=== PATIENT | male | born 2000 | race Caucasian/White ===

== ENCOUNTER 2020-11-21 01:42 | Emergency (ER) | payer OTHER ==
[~2020-11-21] VITALS: Ht 188 cm; Wt 104.0 kg
--- NOTE | 2020-11-21 02:39 | NUR ---
PT PRESENTS TO ED WITH LACERATION TO BACK OF LEFT SIDE OF HEAD. PT FELL WALKING UP STAIRS TO APARMENT AND HIT HIS HEAD. PT RESTING ON GURNEY.
[2020-11-21] MEDS ORDERED: LIDOCAINE 2%, 20ML SQ ONE (03:00)
[2020-11-21] MEDS ORDERED: LIDOCAINE-MPF 2% ,5ML ONE (03:12)
--- NOTE | 2020-11-21 03:17 | NUR ---
ERP AT BEDSIDES, LOREE PLACED. PT TOLERATED PROCEDURE WELL.
[2020-11-21 03:24] VITALS: BP 129/78
--- NOTE | 2020-11-21 03:25 | NUR ---
Patient given discharge instructions and they have confirmed that they understand the instructions. Patient ambulatory with steady gait.
== END 2020-11-21 03:26 | disposition home or self-care (01) ==
LOC: ED 02:42
DX: S01.01XA Laceration without foreign body of scalp, initial encounter (principal); W01.0XXA Fall on same level from slipping, tripping and stumbling without subsequent striking against object, initial encounter; Y93.89 Activity, other specified; Y92.009 Unspecified place in unspecified non-institutional (private) residence as the place of occurrence of the external cause; Y99.8 Other external cause status
CPT/HCPCS: 12031; 99284